=== PATIENT | male | born 1980 | race African-American/Black ===

== ENCOUNTER 2021-02-08 08:44 | Emergency (ER) | payer SELFPAY ==
--- NOTE | 2021-02-08 09:10 | ER ---
Nurse's Notes [facility] Name: Slick Jc Age: 40 yrs Sex: Male : 1980 Arrival Date: 02/08/2021 Time: 08:46 Bed 6 Private MD: Diagnosis: Zoster [herpes zoster]-Left chest wall Presentation: 02/08 08:50 Chief complaint: Patient states: RASH ON LEFT RIBS FOR TWO DAYS. Coronavirus screen: At bp this time, the client does not indicate any symptoms associated with coronavirus-19. Ebola Screen: No symptoms or risks identified at this time. Initial Sepsis Screen: Does the patient meet any 2 criteria? No. Patient's initial sepsis screen is negative. Does the patient have a suspected source of infection? No. Patient's initial sepsis screen is negative. Risk Assessment: Do you want to hurt yourself or someone else? Patient reports no desire to harm self or others. Onset of symptoms is unknown. 08:50 Method Of Arrival: Ambulatory bp 08:50 Acuity: AVINASH 5 bp Triage Assessment: 08:50 General: Appears in no apparent distress. uncomfortable, obese, Behavior is calm, bp cooperative, appropriate for age. Pain: Complains of pain in left lateral anterior chest. EENT: No deficits noted. Neuro: No deficits noted. Cardiovascular: No deficits noted. Respiratory: No deficits noted. GI: No signs and/or symptoms were reported involving the gastrointestinal system. : No signs and/or symptoms were reported regarding the genitourinary system. Derm: Rash noted that is vesicular. Musculoskeletal: No deficits noted. Historical: - Allergies: 08:57 No Known Allergies; bp - Home Meds: 08:57 None [Active]; bp - PMHx: 08:57 None; bp - Immunization history:: Adult Immunizations up to date. - Social history:: Smoking status: Patient denies any tobacco usage or history of. Screenin:50 Abuse screen: Denies threats or abuse. Denies injuries from another. Nutritional bp screening: No deficits noted. Tuberculosis screening: No symptoms or risk factors identified. Fall Risk None identified. Assessment: 08:50 General: SEE TRIAGE NOTE. bp 09:10 Reassessment: D/C ON HOLD FOR MEDICATION. bp 09:43 Reassessment: PT D/C HOME AMBULATORY, DX WITH SHINGLES. bp Vital Signs: 08:53 BP 149 / 93; Pulse 77; Resp 16; Temp 98.1(O); Pulse Ox 98% on R/A; Weight 140.61 kg; em1 Height 6 ft. 0 in. (182.88 cm); Pain 9/10; 09:43 BP 138 / 76; Pulse 73; Resp 16; Pulse Ox 97% ; bp 08:53 Body Mass Index 42.04 (140.61 kg, 182.88 cm) em1 ED Course: 08:46 Patient arrived in ED. am2 08:49 Rosalio Calzada, KIRT is Primary Nurse. bp 08:49 Juan Montgomery MD is Attending Physician. kdr 08:50 Arm band placed on. bp 08:50 Patient has correct armband on for positive identification. Bed in low position. Call bp light in reach. Side rails up X2. Adult w/ patient. 08:57 Triage completed. bp 09:10 Inserted saline lock: 22 gauge in right antecubital area, using aseptic technique. bp Blood collected. 09:43 No provider procedures requiring assistance completed. IV discontinued, intact, bp bleeding controlled, No redness/swelling at site. Pressure dressing applied. Administered Medications: 09:09 CANCELLED (Physician Discretion): morphine 1 mg IVP once; RASS on ADMIN: Combtv4, Very iw Agttd3, Agttd2, Rstlss1, AlertClm0, Drwsy-1, Lt Sdtn-2, Mod Sdtn-3, Dp Sdtn-4, UnArsble-5 09:10 Drug: Zofran (Ondansetron) 4 mg Route: IVP; Site: right antecubital; bp 09:42 Follow up: Response: No adverse reaction bp 09:10 Drug: SOLU-Medrol (methylPrednisoLONE) 125 mg Route: IVP; Site: right antecubital; bp 09:42 Follow up: Response: Marked relief of symptoms bp 09:10 Drug: morphine 4 mg Route: IVP; Site: right antecubital; bp 09:43 Follow up: Response: Pain is decreased bp Outcome: 09:10 Discharge ordered by . kdr 09:43 Discharged to home ambulatory, with family. bp 09:43 Condition: stable 09:43 Discharge instructions given to patient, Instructed on discharge instructions, follow up and referral plans. medication usage, Demonstrated understanding of instructions, follow-up care, medications, Prescriptions given X 4. 09:45 Patient left the ED. bp Signatures: Juan Montgomery MD MD kdr Martinez, Eric em1 [place] am2 Rosalio Calzada, RN RN Yolie Luque RN iw
--- NOTE | 2021-02-08 09:10 | EDPHYS ---
Physician Documentation [facility] Name: Slick Jc Age: 40 yrs Sex: Male : 1980 Arrival Date: 02/08/2021 Time: 08:46 Bed 6 Private MD: ED Physician Juan Montgomery HPI: 02/08 09:14 This 40 yrs old Black Male presents to ER via Ambulatory with complaints of Rash. kdr 09:14 The patient's rash thought to be caused by an unknown cause. The rash is located on the kdr left lateral anterior chest. The rash can be described as erythematous, raised, vesicular. Onset: The symptoms/episode began/occurred gradually, 2 day(s) ago. Associated signs and symptoms: Pertinent positives: burning sensation, Pain Pertinent negatives: difficulty breathing, fever, itching, nausea, swelling of lips, swelling of throat, swelling of tongue. Severity of symptoms: At their worst the symptoms were mild in the emergency department the symptoms are unchanged. The patient has not experienced similar symptoms in the past. The patient has not recently seen a physician. Historical: - Allergies: 08:57 No Known Allergies; bp - Home Meds: 08:57 None [Active]; bp - PMHx: 08:57 None; bp - Immunization history:: Adult Immunizations up to date. - Social history:: Smoking status: Patient denies any tobacco usage or history of. ROS: 09:14 Constitutional: Negative for fever, chills, and weight loss, Eyes: Negative for injury, kdr pain, redness, and discharge. 09:14 Skin: Positive for rash. Exam: 09:14 Skin: rash a mild rash is noted, rash can be described as linear, macular, papular, kdr zoster. 09:17 Constitutional: This is a well developed, well nourished patient who is awake, alert, kdr and in no acute distress. Vital Signs: 08:53 BP 149 / 93; Pulse 77; Resp 16; Temp 98.1(O); Pulse Ox 98% on R/A; Weight 140.61 kg; em1 Height 6 ft. 0 in. (182.88 cm); Pain 9/10; 09:43 BP 138 / 76; Pulse 73; Resp 16; Pulse Ox 97% ; bp 08:53 Body Mass Index 42.04 (140.61 kg, 182.88 cm) em1 MDM: 09:10 Patient medically screened. kdr 09:14 Data reviewed: vital signs, nurses notes. Counseling: I had a detailed discussion with kdr the patient and/or guardian regarding: the historical points, exam findings, and any diagnostic results supporting the discharge/admit diagnosis, the need for outpatient follow up. Administered Medications: 09:09 CANCELLED (Physician Discretion): morphine 1 mg IVP once; RASS on ADMIN: Combtv4, Very iw Agttd3, Agttd2, Rstlss1, AlertClm0, Drwsy-1, Lt Sdtn-2, Mod Sdtn-3, Dp Sdtn-4, UnArsble-5 09:10 Drug: Zofran (Ondansetron) 4 mg Route: IVP; Site: right antecubital; bp 09:42 Follow up: Response: No adverse reaction bp 09:10 Drug: SOLU-Medrol (methylPrednisoLONE) 125 mg Route: IVP; Site: right antecubital; bp 09:42 Follow up: Response: Marked relief of symptoms bp 09:10 Drug: morphine 4 mg Route: IVP; Site: right antecubital; bp 09:43 Follow up: Response: Pain is decreased bp Disposition: 02/08/21 09:10 Discharged to Home. Impression: Zoster [herpes zoster] - Left chest wall. - Condition is Stable. - Discharge Instructions: Shingles, [id number]. - Prescriptions for Ibuprofen 800 mg Oral Tablet - take 1 tablet by ORAL route every 8 hours As needed take with food; 30 tablet. Tylenol- Codeine #3 300-30 mg Oral Tablet - take 2 tablets by ORAL route every 4-6 hours As needed; 12 tablet. Acyclovir 800 mg Oral Tablet - take 1 tablet by ORAL route 5 times per day for 10 days; 50 tablet. Medrol (Slim) 4 mg Oral Tablets, Dose Pack - take 1 tablet by ORAL route as directed - follow package instructions; 1 packet. - Work release form, Medication Reconciliation Form, Thank You Letter, Prescription Opioid Use form. - Follow up: Private Physician; When: 2 - 3 days; Reason: If symptoms return, Further diagnostic work-up, Recheck today's complaints, Continuance of care, Re-evaluation by your physician. - Problem is new. - Symptoms have improved. Signatures: Juan Montgomery MD MD kdr Rosalio Calzada, KIRT RN bp Yolie Cardona RN iw Corrections: (The following items were deleted from the chart) 09:09 09:02 morphine 1 mg IVP once; RASS on ADMIN: Combtv4, Very Agttd3, Agttd2, Rstlss1, iw AlertClm0, Drwsy-1, Lt Sdtn-2, Mod Sdtn-3, Dp Sdtn-4, UnArsble-5 ordered. kdr 09:45 09:10 02/08/2021 09:10 Discharged to Home. Impression: Zoster [herpes zoster] - Left bp chest wall. Condition is Stable. Forms are Medication Reconciliation Form, Thank You Letter, Antibiotic Education, Prescription Opioid Use. Follow up: Private Physician; When: 2 - 3 days; Reason: If symptoms return, Further diagnostic work-up, Recheck today's complaints, Continuance of care, Re-evaluation by your physician. Problem is new. Symptoms have improved. kdr
[2021-02-08] MEDS ORDERED: ONDANSETRON 4 MG/2 ML VIAL ONE (09:26)
[2021-02-08] MEDS ORDERED: METHYLPREDNISOLONE 125 MG INJ ONE (09:26)
[2021-02-08] MEDS ORDERED: MORPHINE 4 MG/ML SYR ONE (09:26)
[2021-02-08 09:51] VITALS: TEMP 98.1
[2021-02-08 10:02] VITALS: BP 138/76; O2SAT 97
== END 2021-02-08 09:45 | disposition home or self-care (01) ==
LOC: ER 08:44
DX: B02.9 Zoster without complications (principal)
CPT/HCPCS: 96374; 96375; 99284; J2405; J2930

== ENCOUNTER 2021-02-19 19:23 | Inpatient (IN) | payer SELFPAY ==
[2021-02-19] MEDS ORDERED: MORPHINE 4 MG/ML SYR ONE (20:55)
[2021-02-19] MEDS ORDERED: NA CHLORIDE 0.9% 1,000 ML ONE ×3 (20:55→23:59)
[2021-02-19] MEDS ORDERED: ONDANSETRON 4 MG/2 ML VIAL ONE (20:55)
[2021-02-19] MEDS ORDERED: FAMOTIDINE 20 MG/2 ML VIAL IV ONE (20:55)
[2021-02-19 21:01] LABS: Urine Blood Negative (Negative); Urine Glucose Negative (Negative); Urine Protein 1+ (Negative); Urine Specific Gravity 1.025 (1.005-1.030)
[2021-02-19 21:07] LABS: Absolute Lymphocytes (CBC) 0.9 K/uL (0.7-4.9); Basophils % 0.4 % (0-1.3); Hematocrit 47.8 % (39.6-49.0); Lymphocytes % 9.1 % (15.3-44.8); MPV 7.2 fL (7.6-11.3); RBC Red Blood Cell Count 5.59 M/uL (4.33-5.43)
[2021-02-19 21:18] LABS: ALT/SGPT 49 U/L (12-78); AST/SGOT 24 U/L (15-37); Albumin 3.6 g/dL (3.4-5.0); Alkaline Phosphatase 54 U/L (45-117); BUN Blood Urea Nitrogen 17 mg/dL (7-18); Bicarbonate 28 mmol/L (21-32); Bilirubin Direct 0.1 mg/dL (0-0.2); Bilirubin Total 0.5 mg/dL (0.2-1.0); Glucose Level 113 mg/dL (74-106); Lipase 102 U/L (73-393); Potassium 4.6 mmol/L (3.5-5.1); Protein, Total 8.1 g/dL (6.4-8.2); Sodium Level 139 mmol/L (136-145)
[2021-02-19 21:26] LABS: Barbiturates NEGATIVE (NEGATIVE); Benzodiazepines NEGATIVE (NEGATIVE); Cocaine NEGATIVE (NEGATIVE); METHAMPHETAM NEGATIVE (NEGATIVE); Methadone NEGATIVE (NEGATIVE); Opiates NEGATIVE (NEGATIVE); Phencyclidine NEGATIVE (NEGATIVE); THC Cannibis POSITIVE (NEGATIVE)
[2021-02-19 22:21] LABS: Blood Morphology Comment NOT SEEN (NOT SEEN); Platelet Estimate ADEQ
--- NOTE | 2021-02-19 23:35 | EDPHYS ---
Physician Documentation [facility] Name: Slick Jc Age: 40 yrs Sex: Male : 1980 Arrival Date: 02/19/2021 Time: 19:26 Bed 6 Private MD: ED Physician Chip Santana HPI: 02/19 21:10 This 40 yrs old Black Male presents to ER via Ambulatory with complaints of Vomiting. mh7 21:10 The patient presents to the emergency department with nausea, that is moderate, mh7 vomiting, that is intermittent, described as clear fluid, abdominal pain, of the epigastric area, described as intermittent, vague,\E\ waxing and waning, and does not radiate. Onset: The symptoms/episode began/occurred this morning, today. Possible causes: Drank ETOH last night. The symptoms are aggravated by nothing. The symptoms are alleviated by nothing. Associated signs and symptoms: Pertinent negatives: anorexia, belching, constipation, diarrhea, dysuria, fever, flatulence, GI bleeding, hematuria. Severity of symptoms: At their worst the symptoms were moderate today, in the emergency department the symptoms are unchanged. Historical: - Allergies: 19:44 No Known Allergies; ad5 - Home Meds: 19:44 None [Active]; ad5 - Immunization history:: Adult Immunizations unknown. - Social history:: Smoking status: Patient denies any tobacco usage or history of. Patient uses alcohol. ROS: 21:10 Constitutional: Negative for fever, chills, and weight loss, Eyes: Negative for injury, mh7 pain, redness, and discharge, ENT: Negative for injury, pain, and discharge, Neck: Negative for injury, pain, and swelling, Cardiovascular: Negative for chest pain, palpitations, and edema, Respiratory: Negative for shortness of breath, cough, wheezing, and pleuritic chest pain, Back: Negative for injury and pain, : Negative for injury, bleeding, discharge, and swelling, MS/Extremity: Negative for injury and deformity, Skin: Negative for injury, rash, and discoloration, Neuro: Negative for headache, weakness, numbness, tingling, and seizure, Psych: Negative for depression, anxiety, suicide ideation, homicidal ideation, and hallucinations, Allergy/Immunology: Negative for hives, rash, and allergies, Endocrine: Negative for neck swelling, polydipsia, polyuria, polyphagia, and marked weight changes, Hematologic/Lymphatic: Negative for swollen nodes, abnormal bleeding, and unusual bruising. Exam: 21:10 Head/Face: Normocephalic, atraumatic. Eyes: Pupils equal round and reactive to light, mh7 extra-ocular motions intact. Lids and lashes normal. Conjunctiva and sclera are non-icteric and not injected. Cornea within normal limits. Periorbital areas with no swelling, redness, or edema. Neck: Trachea midline, no thyromegaly or masses palpated, and no cervical lymphadenopathy. Supple, full range of motion without nuchal rigidity, or vertebral point tenderness. No Meningismus. Chest/axilla: Normal chest wall appearance and motion. Nontender with no deformity. No lesions are appreciated. Cardiovascular: Regular rate and rhythm with a normal S1 and S2. No gallops, murmurs, or rubs. Normal PMI, no JVD. No pulse deficits. Respiratory: Lungs have equal breath sounds bilaterally, clear to auscultation and percussion. No rales, rhonchi or wheezes noted. No increased work of breathing, no retractions or nasal flaring. 21:10 Back: No spinal tenderness. No costovertebral tenderness. Full range of motion. Skin: Warm, dry with normal turgor. Normal color with no rashes, no lesions, and no evidence of cellulitis. MS/ Extremity: Pulses equal, no cyanosis. Neurovascular intact. Full, normal range of motion. Neuro: Awake and alert, GCS 15, oriented to person, place, time, and situation. Cranial nerves II-XII grossly intact. Motor strength 5/5 in all extremities. Sensory grossly intact. Cerebellar exam normal. Normal gait. Psych: Awake, alert, with orientation to person, place and time. Behavior, mood, and affect are within normal limits. 21:10 Constitutional: The patient appears in no acute distress, alert, awake, uncomfortable. 21:10 Abdomen/GI: Inspection: obese Bowel sounds: normal, in all quadrants, Palpation: moderate abdominal tenderness, in the epigastric area, right upper quadrant and left upper quadrant, mass, is not appreciated, rebound tenderness, is not appreciated, voluntary guarding, is not appreciated, involuntary guarding, is not appreciated, no appreciated organomegaly, Rectal exam: the exam is deferred, because of patient request, Indicators: McBurney's point is not tender, Dent's sign is negative, Rovsing's sign is negative, Obturator sign is negative, Psoas sign is negative, Liver: no appreciated palpable abnormalities, Hernia: not appreciated. Vital Signs: 19:42 BP 160 / 86; Pulse 73; Resp 16 S; Temp 97.6; Pulse Ox 98% on R/A; Weight 141.07 kg; ad5 Height 6 ft. (182.88 cm); 21:42 BP 152 / 79; Pulse 74; Resp 16; Pulse Ox 99% on R/A; [facility] 23:26 BP 154 / 85; Pulse 70; Resp 16; Pulse Ox 99% on R/A; [facility] 02/20 00:37 BP 148 / 78; Pulse 71; Resp 16; Pulse Ox 98% on R/A; [facility] 02/19 19:42 Body Mass Index 42.18 (141.07 kg, 182.88 cm) ad5 MDM: 02/19 23:31 Differential diagnosis: Nonspecific abd pain, gastritis, appendicitis, diverticulitis, 7 viral gastroenteritis, gastroenteritis. Data reviewed: vital signs, nurses notes, lab test result(s), CBC, electrolytes, urinalysis, radiologic studies, CT scan. Data interpreted: Pulse oximetry: on room air is 99 %. Interpretation: normal. Counseling: I had a detailed discussion with the patient and/or guardian regarding: the historical points, exam findings, and any diagnostic results supporting the discharge/admit diagnosis, the presence of at least one elevated blood pressure reading (>120/80) during this emergency department visit, lab results, radiology results, the need for further work-up and treatment in the hospital. Response to treatment: the patient's symptoms have markedly improved after treatment. Physician consultation: Gaston Jara MD was contacted at 23:20, regarding patient's condition, and will see patient in inpatient room, would like admission per Dr. Leander Briceno MD. 23:34 Patient medically screened. [facility] 02/19 20:26 Order name: Basic Metabolic Panel; Complete Time: 21:29 [facility] 02/19 20:26 Order name: CBC with Diff; Complete Time: 22:24 [facility] 02/19 20:26 Order name: Hepatic Function; Complete Time: 21:29 [facility] 02/19 20:26 Order name: Lipase; Complete Time: 21:29 [facility] 02/19 20:26 Order name: UDS; Complete Time: 21:29 [facility] 02/19 21:01 Order name: Urine Dipstick-Ancillary; Complete Time: 21:29 [facility] 02/19 21:08 Order name: Manual Differential; Complete Time: 22:24 [facility] 02/19 21:29 Order name: CT Abd/Pelvis - IV Contrast Only [facility] 02/20 01:03 Order name: SARS-COV-2 RT PCR [facility] 02/19 20:26 Order name: IV Saline Lock; Complete Time: 20:45 [facility] 02/19 20:26 Order name: Labs collected and sent; Complete Time: 20:46 [facility] 02/19 20:26 Order name: EKG - Nurse/Tech; Complete Time: 20:58 [facility] 02/19 20:26 Order name: Urine Dipstick-Ancillary (obtain specimen); Complete Time: 20:58 [facility] Administered Medications: 20:45 Drug: NS 0.9% 1000 ml Route: IV; Rate: 1000 ml; Site: right antecubital; [facility] 02/20 00:06 Follow up: IV Status: Completed infusion [facility] 02/19 20:45 Drug: morphine 4 mg Route: IVP; Site: right antecubital; [facility] 21:31 Follow up: Response: No adverse reaction [facility] 20:45 Drug: Zofran (Ondansetron) 4 mg Route: IVP; Site: right antecubital; [facility] 21:31 Follow up: Response: No adverse reaction [facility] 20:45 Drug: Pepcid (famotidine) 20 mg Route: IVP; Site: right antecubital; [facility] 21:31 Follow up: Response: No adverse reaction [facility] 21:40 Drug: NS 0.9% 1000 ml Route: IV; Rate: 1000 ml; Site: left antecubital; [facility] 02/20 00:06 Follow up: IV Status: Completed infusion [facility] 02/19 23:40 CANCELLED (Duplicate Order): NS 0.9% 1000 ml IV at 100 ml/hr once [facility] 23:40 CANCELLED (Duplicate Order): ProTONIX (pantoprazole) 40 mg IVP once [facility] 02/20 00:05 Drug: Zosyn (piperacillin-tazobactam) 3.375 grams Route: IVPB; Infused Over: 60 mins; 8 Site: right antecubital; 00:38 Follow up: Response: No adverse reaction; IV Status: Completed infusion [facility] 00:06 Drug: ProTONIX (pantoprazole) 40 mg Route: IVP; Site: right antecubital; [facility] 00:38 Follow up: Response: No adverse reaction [facility] 00:06 Drug: NS 0.9% 1000 ml Route: IV; Rate: 100 ml/hr; Site: right antecubital; [facility] 02:11 Follow up: IV Status: Infusion continued upon admission [facility] Disposition: 02/19/21 23:34 Hospitalization ordered by Leander Briceno for Observation. Diagnosis are Lower abdominal pain, unspecified - Possible Appendicits, Nausea and vomiting. - Bed requested for Telemetry/MedSurg (observation). - Status is Observation. [facility] - Condition is Stable. - Problem is new. - Symptoms have improved. Signatures: Dispatcher [employer] [facility] Adeline Goldberg RN RN dw Attema, Lee, CROSS CUT SAWYER-C CR[employer]WYER-Cla1 Chip Santana MD MD [facility] Yan Estevez RN RN [facility] Domingo Gaston Corrections: (The following items were deleted from the chart) 02/19 23:40 23:40 NS 0.9% 1000 ml IV at 100 ml/hr once ordered. [place] [id number] 23:40 23:40 ProTONIX (pantoprazole) 40 mg IVP once ordered. [place] [id number] 02/20 00:11 02/19 23:41 CORONAVIRUS+MR.LAB.BRZ ordered. [facility] 02/20 01:09 02/19 23:34 Hospitalization Ordered by Leander Briceno MD for Observation. Preliminary diagnosis is Lower abdominal pain, unspecified - Possible Appendicits; Nausea and vomiting. Bed requested for Telemetry/MedSurg (observation). Status is Observation. Condition is Stable. Problem is new. Symptoms have improved. [facility] 02/20 02:11 01:09 02/19/2021 23:34 Hospitalization Ordered by Leander Briceno MD for Observation. [facility] Preliminary diagnosis is Lower abdominal pain, unspecified - Possible Appendicits; Nausea and vomiting. Bed requested for Telemetry/MedSurg (observation). Status is Observation. Condition is Stable. Problem is new. Symptoms have improved. dw
--- NOTE | 2021-02-19 23:35 | ER ---
Nurse's Notes [facility] Name: Slick Jc Age: 40 yrs Sex: Male : 1980 Arrival Date: 02/19/2021 Time: 19:26 Bed 6 Private MD: Diagnosis: Lower abdominal pain, unspecified-Possible Appendicits; Nausea and vomiting Presentation: 02/19 19:42 Chief complaint: Patient states: C/O n/v "all day". Pt reports ETOH last pm, reports ad5 only "2 shots". Denies abd pain, diarrhea, urinary s/s or other c/o. Coronavirus screen: At this time, the client does not indicate any symptoms associated with coronavirus-19. Ebola Screen: No symptoms or risks identified at this time. Initial Sepsis Screen: Does the patient meet any 2 criteria? No. Patient's initial sepsis screen is negative. Does the patient have a suspected source of infection? No. Patient's initial sepsis screen is negative. Risk Assessment: Do you want to hurt yourself or someone else? Patient reports no desire to harm self or others. Onset of symptoms was February 19, 2021. 19:42 Method Of Arrival: Ambulatory ad5 19:42 Acuity: AVINASH 3 ad5 Triage Assessment: 19:44 General: Appears in no apparent distress. Behavior is calm, cooperative, appropriate ad5 for age. Historical: - Allergies: 19:44 No Known Allergies; ad5 - Home Meds: 19:44 None [Active]; ad5 - Immunization history:: Adult Immunizations unknown. - Social history:: Smoking status: Patient denies any tobacco usage or history of. Patient uses alcohol. Screenin:47 Abuse screen: Denies threats or abuse. Denies injuries from another. Nutritional jm8 screening: No deficits noted. Tuberculosis screening: No symptoms or risk factors identified. Fall Risk None identified. Assessment: 20:46 General: Appears in no apparent distress. comfortable, Behavior is calm, cooperative, jm8 appropriate for age. Pain: Complains of pain in abdomen. Neuro: No deficits noted. Neuro: Level of Consciousness is awake, alert, obeys commands, Oriented to person, place, time. Cardiovascular: No deficits noted. Respiratory: No deficits noted. Airway is patent Trachea midline Respiratory effort is even, unlabored, Respiratory pattern is regular, symmetrical. GI: Abdomen is round Bowel sounds present X 4 quads. Reports lower abdominal pain, upper abdominal pain, intolerance of fluids, intolerance of food, nausea, vomiting. : No deficits noted. No signs and/or symptoms were reported regarding the genitourinary system. EENT: No deficits noted. No signs and/or symptoms were reported regarding the EENT system. Derm: No deficits noted. No signs and/or symptoms reported regarding the dermatologic system. Musculoskeletal: No deficits noted. No signs and/or symptoms reported regarding the musculoskeletal system. Vital Signs: 19:42 BP 160 / 86; Pulse 73; Resp 16 S; Temp 97.6; Pulse Ox 98% on R/A; Weight 141.07 kg; ad5 Height 6 ft. (182.88 cm); 21:42 BP 152 / 79; Pulse 74; Resp 16; Pulse Ox 99% on R/A; jm8 23:26 BP 154 / 85; Pulse 70; Resp 16; Pulse Ox 99% on R/A; [facility] 02/20 00:37 BP 148 / 78; Pulse 71; Resp 16; Pulse Ox 98% on R/A; 8 02/19 19:42 Body Mass Index 42.18 (141.07 kg, 182.88 cm) ad5 ED Course: 02/19 19:26 Patient arrived in ED. bp1 19:43 Triage completed. ad5 20:02 Chip Santana MD is Attending Physician. 7 20:47 Patient has correct armband on for positive identification. Bed in low position. Call [facility] light in reach. Side rails up X2. 20:47 Arm band placed on right wrist. 8 21:00 Inserted saline lock: 20 gauge in right antecubital area, using aseptic technique. jm8 22:42 CT Abd/Pelvis - IV Contrast Only In Process Unspecified. EDMS 23:33 Leander Briceno MD is Hospitalizing Provider. [facility] 02/20 01:37 Report given to Kendy MORALEZ. [facility] 02:10 No provider procedures requiring assistance completed. Patient admitted, IV remains in [facility] place. Administered Medications: 02/19 20:45 Drug: NS 0.9% 1000 ml Route: IV; Rate: 1000 ml; Site: right antecubital; [facility] 02/20 00:06 Follow up: IV Status: Completed infusion [facility] 02/19 20:45 Drug: morphine 4 mg Route: IVP; Site: right antecubital; 8 21:31 Follow up: Response: No adverse reaction 8 20:45 Drug: Zofran (Ondansetron) 4 mg Route: IVP; Site: right antecubital; 8 21:31 Follow up: Response: No adverse reaction [facility] 20:45 Drug: Pepcid (famotidine) 20 mg Route: IVP; Site: right antecubital; 8 21:31 Follow up: Response: No adverse reaction [facility] 21:40 Drug: NS 0.9% 1000 ml Route: IV; Rate: 1000 ml; Site: left antecubital; [facility] 02/20 00:06 Follow up: IV Status: Completed infusion [facility] 02/19 23:40 CANCELLED (Duplicate Order): NS 0.9% 1000 ml IV at 100 ml/hr once [facility] 23:40 CANCELLED (Duplicate Order): ProTONIX (pantoprazole) [address] [facility] 02/20 00:05 Drug: Zosyn (piperacillin-tazobactam) 3.375 grams Route: IVPB; Infused Over: 60 mins; [facility] Site: right antecubital; 00:38 Follow up: Response: No adverse reaction; IV Status: Completed infusion [facility] 00:06 Drug: ProTONIX (pantoprazole) 40 mg Route: IVP; Site: right antecubital; [facility] 00:38 Follow up: Response: No adverse reaction [facility] 00:06 Drug: NS 0.9% 1000 ml Route: IV; Rate: 100 ml/hr; Site: right antecubital; [facility] 02:11 Follow up: IV Status: Infusion continued upon admission [facility] Outcome: 02/19 23:34 Decision to Hospitalize by Provider. [facility] 02/20 02:11 Admitted to Med/surg [facility] Condition: good Instructed on the need for admit. 02:11 Patient left the ED. 8 Signatures: Dispatcher [employer] EDMS Karen Lopez Maurice, MD MD [facility] Yan Estevez RN RN [facility] Domingo Gaston
[2021-02-19] MEDS ORDERED: PANTOPRAZOLE 40 MG INJ ONE (23:59)
[2021-02-20] MEDS ORDERED: NA CHLORIDE 0.9% 100 ML ONE
[2021-02-20] MEDS ORDERED: PIPERACIL/TAZO 3.375 GM VIAL IV ONE
--- NOTE | 2021-02-20 00:15 | P.HP ---
Certification for Inpatient Patient admitted to: Observation With expected LOS: <2 Midnights Patient will require the following post-hospital care: None Practitioner: I am a practitioner with admitting privileges, knowledge of patient current condition, hospital course, and medical plan of care. Services: Services provided to patient in accordance with Admission requirements found in Title 42 Section 412.3 of the Code of Federal Regulations <Jose Jay - Last Filed: 02/20/21 00:13> Patient History Date of Service: 02/20/21 Primary Care Provider: none Reason for admission: Abdominal tenderness History of Present Illness: 40-year-old Afro-[place] with morbid obesity, hypertension presents emergency department for abdominal pain/vomiting. Patient reports last night he had a few drinks and throughout the day he has been having vomiting all day. Reports epigastric and right lower quadrant abdominal pain. Patient evaluated in the emergency department, labs significant for white blood cell count 9.4 CT demonstrates slight prominence of the appendix with minimal periappendiceal haziness for which the possibility of acute early appendicitis could be a consideration. Case was discussed with General Surgery who recommends admit under observation with repeat CT scan with p.o. contrast in the morning. - Past Medical/Surgical History -: Hypertension -: none Psychosocial/ Personal History: Works and lawn service - Family History Family History: Reviewed- Non-Contributory - Social History Smoking Status: Never smoker Alcohol use: No CD- Drugs: Yes Caffeine use: Yes Place of Residence: Home <MistyJose - Last Filed: 02/20/21 00:13> Date of Service: 02/20/21 <Leander Briceno - Last Filed: 02/21/21 06:27> Review of Systems 10-point ROS is otherwise unremarkable Gastrointestinal: Nausea, Vomiting, Abdominal Pain <Jose Jay - Last Filed: 02/20/21 00:13> Physical Examination - Physical Exam General: Alert, In no apparent distress, Obese HEENT: Atraumatic, PERRLA, Mucous membr. moist/pink, EOMI, Sclerae nonicteric Neck: Supple, 2+ carotid pulse no bruit, No LAD, Without JVD or thyroid abnormality Respiratory: Clear to auscultation bilaterally, Normal air movement Cardiovascular: Regular rate/rhythm, Normal S1 S2 Gastrointestinal: Normal bowel sounds, No rebound, No guarding, Tenderness (Mild epigastric, moderate right lower quadrant tenderness) Musculoskeletal: No tenderness Integumentary: No rashes Neurological: Normal gait, Normal speech, Normal strength at 5/5 x4 extr, Normal tone, Normal affect Lymphatics: No axilla or inguinal lymphadenopathy - Studies Laboratory Data (last 24 hrs) 02/19/21 20:42: WBC 9.40, Hgb 15.8, Hct 47.8, Plt Count 219 02/19/21 20:42: Sodium 139, Potassium 4.6, BUN 17, Creatinine 1.08, Glucose 113 H, Total Bilirubin 0.5, AST 24, ALT 49, Alkaline Phosphatase 54, Lipase 102 <Jose Jay - Last Filed: 02/20/21 00:13> - Studies Laboratory Data (last 24 hrs) 02/20/21 05:16: Sodium 141, Potassium 4.4, BUN 11, Creatinine 1.07, Glucose 104, Total Bilirubin 0.5, AST 23, ALT 42, Alkaline Phosphatase 47 <Leander Briceno - Last Filed: 02/21/21 06:27> Assessment and Plan - Plan Assessment Abdominal tenderness suspected early appendicitis Hypertension Morbid obesity Plan Abdominal tenderness suspected early appendicitis: General surgery consulted, NPO, Zosyn, p.r.n. pain medications and anti emetics, IV fluids, GI prophylaxis. Repeat CT with p.o. contrast in the morning. DVT prophylaxis with SCDs. Hypertension: Patient not on any medication currently, previously on lisinopril. Will watch blood pressure throughout hospitalization, patient may need medication at discharge. Morbid obesity: Discussed lifestyle changes. Discharge Plan: Home Plan to discharge in: 24 Hours - Advance Directives Does patient have a Living Will: No Does patient have a Durable POA for Healthcare: No - Code Status/Comfort Care Code Status Assessed: Yes (Full code) Critical Care: No Time Spent Managing Pts Care (In Minutes): 55 <Jose Jay - Last Filed: 02/20/21 00:13> Date of Service: 02/20/21 Agree with plan of care as mentioned above. Patient to proceed with lap choly later today. <Leander Briceno - Last Filed: 02/21/21 06:27>
[2021-02-20] MEDS ORDERED: ONDANSETRON 4 MG/2 ML VIAL IV PRN (01:42)
[2021-02-20] MEDS ORDERED: PIPER/TAZO/NS 3.375gm 3.375 GM/100 ML BAG IVPB SCH (01:42)
[2021-02-20] MEDS ORDERED: SODIUM CHLORIDE 0.9% 10ML INJ IV PRN (01:42)
[2021-02-20] MEDS: MORPHINE 2 MG/ML SYR IV PRN ×2 (02:11→09:29)
[2021-02-20 02:19] VITALS: BMI 42.1
[2021-02-20] MEDS: NA CHLORIDE 0.9% 1,000 ML IV SCH ×3 (03:36→20:33)
[2021-02-20 06:13] LABS: Absolute Lymphocytes (CBC) 1.4 K/uL (0.7-4.9); Basophils % 0.2 % (0-1.3); Hematocrit 48.5 % (39.6-49.0); Lymphocytes % 18.6 % (15.3-44.8); MPV 7.2 fL (7.6-11.3); RBC Red Blood Cell Count 5.55 M/uL (4.33-5.43)
[2021-02-20 06:34] LABS: ALT/SGPT 42 U/L (12-78); AST/SGOT 23 U/L (15-37); Albumin 3.1 g/dL (3.4-5.0); Alkaline Phosphatase 47 U/L (45-117); BUN Blood Urea Nitrogen 11 mg/dL (7-18); Bicarbonate 29 mmol/L (21-32); Bilirubin Total 0.5 mg/dL (0.2-1.0); Glucose Level 104 mg/dL (74-106); Potassium 4.4 mmol/L (3.5-5.1); Protein, Total 7.3 g/dL (6.4-8.2); Sodium Level 141 mmol/L (136-145)
[2021-02-20 08:43] LABS: Urine Appearance CLEAR (Clear); Urine Bilirubin NEGATIVE (Negative); Urine Blood NEGATIVE (Negative); Urine Color YELLOW (Yellow); Urine Glucose NEGATIVE (Negative); Urine Protein NEGATIVE (Negative); Urine Urobilinogen 0.2 mg/dL (0.2-1.0)
[2021-02-20 08:51] LABS: Urine Bacteria NONE SEEN /HPF (NONE SEEN); Urine RBC NONE SEEN /HPF (NONE SEEN)
--- NOTE | 2021-02-20 09:22 | RAD REPORT ---
EXAM DESCRIPTION: CT - Abdomen Pelvis Wo Contrast - 02/20/2021 8:56 am CLINICAL HISTORY: Abdominal pain. R/O Appy COMPARISON: Abdomen Pelvis W Contrast dated 02/19/2021 TECHNIQUE: CT imaging of the abdomen and pelvis was performed without contrast. Solid organ and vasc ular assessment is limited due to lack of IV contrast. All CT scans are performed using dose optimization technique as appropriate and may include automated exposure control or mA/KV adjustment according to patient size. FINDINGS: The lower lung israel are clear. The liver, spleen, pancreas, adrenal glands and kidneys are within normal limits for a limited non-co ntrast examination. No bowel obstruction, free air, free fluid or abscess. Scattered colonic diverticula. The appendix is dilated to 15 millimeters with mild surrounding inflammation compatible with early acute appendiciti s. No fractures. IMPRESSION: Early acute appendicitis. A limited non-contrast examination was performed as detailed.
[2021-02-20] MEDS: PANTOPRAZOLE 40 MG INJ IVP SCH (09:25)
[2021-02-20] MEDS: PIPER/TAZO/NS 3.375gm 3.375 GM/100 ML BAG IVPB SCH ×2 (09:44→17:43)
[2021-02-20] MEDS ORDERED: FENTANYL CITR 100 MCG/2 ML ONE (13:02)
[2021-02-20] MEDS ORDERED: propofoL 200 MG/20 ML VIAL IV ONE ×4 (13:02→14:29)
[2021-02-20] MEDS ORDERED: LIDOCAINE 1% MPF 5 ML VIAL ONE (13:02)
[2021-02-20] MEDS ORDERED: ROCURONIUM 50 MG/5 ML VIAL IV ONE (13:02)
[2021-02-20] MEDS ORDERED: MIDAZOLAM HCL 2 MG/2 ML INJ ONE (13:02)
[2021-02-20] MEDS ORDERED: Ringers Lactate 1,000 ML IV ONE ×2 (13:11→15:06)
--- NOTE | 2021-02-20 13:32 | RAD REPORT ---
EXAM DESCRIPTION: ADDENDUM #1 THIS REPORT CONTAINS FINDINGS THAT MAY BE CRITICAL TO PATIENT CARE: Called, telephoned, verbal rep ort was given oral to Dr. Santana at 11:16 PM CDT on 02/19/2021. Electronically signed by: Renzo Panda MD 02/19/2021 11:38 PM CDT End of Addendum EXAM DESCRIPTION: Abdomen Pelvis W Contrast 02/19/2021 11:04 PM CDT CLINICAL HISTORY: 40 years, Male, Abd pain;Nausea / vomiting COMPARISON: None TECHNIQUE: Contrast-enhanced images of the abdomen and pelvis were performed utilizing 5 mm slice th ickness at 5 mm interval reconstruction from the lung bases to the ischial tuberosities after the adm inistration of IV contrast. In addition multiplanar reformats in the coronal and sagittal plane were obtained and reviewed. This exam was performed according to our departmental dose-optimization protocol, which includes auto mated exposure control, adjustment of the mA and/or kV according to patient size and/or use of iterat luis alberto reconstruction technique. FINDINGS: The lung bases demonstrate minimal dependent atelectatic changes. The liver, gallbladder, pancreas, spleen and adrenal glands demonstrate to be unremarkable, no focal lesions are noted. The kidneys demonstrate normal uptake of contrast media with no evidence for hydronephrosis. Grossly the unopacified stomach, small bowel and large bowel demonstrate to be within normal limits. There is no evidence for bowel dilatation/or free air. There is slight prominence of the appendix m easuring 12.[address] series #501 image 70/109 and coronal series #502 image 51/134-64/134, there is minimal periappendiceal haziness for which the possibility of early acute appendicitis could be of c onsideration. There is no evidence for abscess formation and/or perforation. The urinary bladder demonstrate to be unremarkable. The prostate gland is normal. The aorta demon strate to be normal. There is no retroperitoneal lymphadenopathy. There is no evidence for ascites and/or significant abnormal fluid collections. The rest of the soft tissue and bony structures are wi thin normal limits. IMPRESSION: Slight prominence of the appendix there is minimal periappendiceal haziness for which th e possibility of early acute appendicitis could be of consideration. There is no evidence for abscess formation and/or perforation. Otherwise unremarkable CT scan of the abdomen and pelvis with contrast. Electronically signed by: Renzo Panda MD 02/19/2021 11:12 PM CDT Due to temporary technical issues with the PACS/Fluency reporting system, reports are being signed by the in house radiologist without review as a courtesy to ensure prompt reporting. The interpreting r adiologist is fully responsible for the content of the report.
--- NOTE | 2021-02-20 14:28 | CON ---
Date of Consultation: 02/20/2021 Diagnosis: Abdominal pain. History Of Present Illness: This is a case of a 40-year-old patient, comes to us late last night wit h history of abdominal pain. mainly lower abdomen. He thought it was just a food poisoni ng and also he was drinking some yesterday as part of the weekend, but since did not get better, he c ome late last night. Etiology of that was initially questionable, so the patient was admitted for ob servation. A CAT scan was repeated this morning showing acute appendicitis. The patient denies any dysuria, hematuria, hematochezia, melena. Denies any recent traveling out of the country. Denies an y family member sick at home. Denies any trauma. Past Medical History: Hypertension, although he is just controlled with diet. Past Surgical History: None. Social History: He does smoke. He does not drink alcohol. Family History: Noncontributory. Review of Systems: See H and P. Ten points are otherwise unremarkable. Physical Examination: General: The patient is awake and alert. HEENT: Pupils are equal and reactive. Anicteric. Neck: Supple. Chest: Clear. Abdomen: Right lower quadrant and periumbilical tenderness with Rovsing sign positive. Genitalia: Deferred. Rectal: Deferred. Extremities: Good capillary refill. Laboratory Data: Blood work shows WBC count of 7.7, hemoglobin of 15.6. Potassium 4.4. CAT scan of abdomen and pelvis, I discussed the case today with yesterday we have some questions about it. Today, the CAT scan is still showing some areas that may be consistent with acute appendic itis. I was called for early acute appendicitis. Assessment: A 40-year-old patient with right lower quadrant tenderness and appendicitis. The benefi ts, alternatives, and risks of laparoscopic possible open appendectomy fully explained which include, but not limited to infection, bleeding, damage to adjacent structures anesthesia complication, negat luis alberto appendix, OR, even . He understands this may not relieve any symptoms. He might need more than one surgical intervention. The patient was emergently booked in OR. KAT/NICOLE Voice ID: [id number] Report ID: [id number]
[2021-02-20] MEDS ORDERED: dexAMETHasone 10 MG/ML VIAL ONE (14:49)
--- NOTE | 2021-02-20 14:59 | P.BOP ---
Preoperative diagnosis: Acute appendicitis, morbid obesity, HTN Postoperative diagnosis: same Primary procedure: Laparoscopic appendectomy Medical Radiation Dosimetrist: Tracie Polk (María Elena) Estimated blood loss: <10cc Specimen: carlos Findings: as above Anesthesia: General Complications: None Transferred to: Recovery Room Condition: Good
[2021-02-20] MEDS ORDERED: ONDANSETRON 4 MG/2 ML VIAL ONE (15:11)
[2021-02-20] MEDS ORDERED: KETOROLAC 30 MG/ML INJ ONE (15:11)
[2021-02-20] MEDS ORDERED: GLYCOPYRROLATE 0.2 MG/ML SYR ONE ×2 (15:12→15:19)
[2021-02-20] MEDS ORDERED: NEOSTIGMINE 1 MG/ML -5 ML ONE (15:12)
[2021-02-20] MEDS ORDERED: SUCCINYLCHOLINE 20 MG/ML (10 ML) IV ONE (15:39)
--- NOTE | 2021-02-20 15:49 | EKG ---
Test Date: 2021-02-19 Test Time: 20:56:47 Lane Marker Installer: EB MEASUREMENT RESULTS: Intervals: Rate: 71 IN: 200 QRSD: 120 QT: 368 QTc: 399 [place]: P: 33 IN: 200 QRS: 25 T: 34 INTERPRETIVE STATEMENTS: Normal sinus rhythm Nonspecific intraventricular conduction delay Borderline ECG No previous ECG available for comparison Electronically Signed On 02-20-21 15:47:04 CDT by Manny King
[2021-02-20] MEDS: DOCUSATE NA 100 MG CAP PO SCH (20:33)
[2021-02-21] MEDS: PIPER/TAZO/NS 3.375gm 3.375 GM/100 ML BAG IVPB SCH ×2 (00:10→09:13)
[2021-02-21] MEDS: MORPHINE 2 MG/ML SYR IV PRN (01:03)
[2021-02-21] MEDS: HYDROCODONE/APAP 5/325 MG TAB PO PRN ×2 (05:40→09:25)
[2021-02-21 06:15] LABS: Absolute Lymphocytes (CBC) 1.3 K/uL (0.7-4.9); Basophils % 0.2 % (0-1.3); Hematocrit 44.4 % (39.6-49.0); Lymphocytes % 14.6 % (15.3-44.8); MPV 7.1 fL (7.6-11.3); RBC Red Blood Cell Count 5.14 M/uL (4.33-5.43)
[2021-02-21 06:28] LABS: Albumin 2.8 g/dL (3.4-5.0); Bilirubin Total 0.6 mg/dL (0.2-1.0); Potassium 3.9 mmol/L (3.5-5.1); Protein, Total 6.6 g/dL (6.4-8.2)
[2021-02-21] MEDS: NA CHLORIDE 0.9% 1,000 ML IV SCH ×2 (06:37→07:42)
[2021-02-21] MEDS ORDERED: POTASSIUM CL SA 10 MEQ TAB PO ONE (09:00)
[2021-02-21] MEDS: PANTOPRAZOLE 40 MG INJ IVP SCH (09:12)
[2021-02-21] MEDS: DOCUSATE NA 100 MG CAP PO SCH (09:13)
[2021-02-21 10:55] VITALS: O2SAT 97
[2021-02-21 12:12] VITALS: BP 138/81; TEMP 97.6
--- NOTE | 2021-02-27 02:52 | P.DS ---
Discharge Date: 02/21/21 Primary Care Provider: none Disposition: ROUTINE DISCHARGE Discharge Condition: GOOD Reason for Admission: Abdominal tenderness Consultations: General surgery Brief History of Present Illness: 40-year-old Afro-[place]an with morbid obesity, hypertension presents emergency department for abdominal pain/vomiting. Patient reports last night he had a few drinks and throughout the day he has been having vomiting all day. Reports epigastric and right lower quadrant abdominal pain. Patient evaluated in the emergency department, labs significant for white blood cell count 9.4 CT dem onstrates slight prominence of the appendix with minimal periappendiceal haziness for which the possibility of acute early appendicitis could be a consideration. Case was discussed with General Surgery who recommends admit under observation with repeat CT scan with p.o. contrast in the morning. Hospital Course: Patient has done well postoperatively. At this time, he is stable for discharge with outpatient follow with General surgery. Continue with pain medication and advanced diet as tolerated. Vital Signs/Physical Exam: Temp Pulse Resp BP Pulse Ox 97.6 F 58 18 138/81 97 02/21/21 12:00 02/21/21 12:00 02/21/21 12:00 02/21/21 12:00 02/21/21 12:00 General: Alert, In no apparent distress, Oriented x3 Laboratory Data at Discharge: WBC 9.00 K/uL (4.3-10.9) D 02/21/21 05:33 Hgb 14.8 g/dL (13.6-17.9) 02/21/21 05:33 Hct 44.4 % (39.6-49.0) 02/21/21 05:33 Plt Count 190 K/uL (152-406) 02/21/21 05:33 Sodium 142 mmol/L (136-145) 02/21/21 05:33 Potassium 3.9 mmol/L (3.5-5.1) 02/21/21 05:33 BUN 12 mg/dL (7-18) 02/21/21 05:33 Creatinine 1.20 mg/dL (0.55-1.3) 02/21/21 05:33 Glucose 106 mg/dL (74-106) 02/21/21 05:33 Total Bilirubin 0.6 mg/dL (0.2-1.0) 02/21/21 05:33 AST 18 U/L (15-37) 02/21/21 05:33 ALT 36 U/L (12-78) 02/21/21 05:33 Alkaline Phosphatase 45 U/L (45-117) 02/21/21 05:33 Lipase 102 U/L (73-393) 02/19/21 20:42 Home Medications: Amox/Clavulanate [Augmentin 875-125 Tab] 875 mg PO BID #10 tab 02/21/21 Hydrocodone 5/APAP 325 [Farley 5/325*] 1 tab PO Q6HR PRN #20 tab 02/21/21 New Medications: Amox/Clavulanate [Augmentin 875-125 Tab] 875 mg PO BID #10 tab Hydrocodone 5/APAP 325 [Farley 5/325*] 1 tab PO Q6HR PRN #20 tab PRN Reason: Pain Scale 5-7 (Moderate) Physician Discharge Instructions: PROBLEM: Abdominal Pain, Appendicitis GOAL: Clear understanding of disease process INSTRUCTIONS: OK TO DC IV AND DC HOME FOLLOW-UP WITH PRIMARY CARE PROVIDER IN 1-2 WEEKS FOLLOW-UP WITH General surgery IN 1-2 WEEKS RETURN TO THE ER IF symptoms worsen CALL or TEXT DR. TOPETE AT [phone] IF ANY QUESTIONS REGARDING HOSPITAL STAY. PLEASE CALL THE FLOOR AT [phone] IF ANY MEDICATION OR NURSING QUESTIONS. Diet: heart healthy Activity: Fall precautions, no lifting more than 5 pounds Diet: AHA Activity: Fall precautions Followup: Gaston Jara MD [ACTIVE - CAN ADMIT] - NONE,NONE [Primary Care Provider] - Time spent managing pt's care (in minutes): 35
== END 2021-02-21 14:17 | disposition home or self-care (01) | DRG 342 ==
LOC: ER 19:23 → ERHOLD 02-20 00:13 → 2ND 02-20 01:33 → OBSVTOIN 02-20 07:58
PROVIDERS: ADMIT Hospitalist; ATTEND Hospitalist
PROC: 0DTJ4ZZ Resection of Appendix, Percutaneous Endoscopic Approach (ICD-10-PCS; principal; 2021-02-20 15:45)
DX: K35.80 Unspecified acute appendicitis (principal); Z68.41 Body mass index [BMI] 40.0-44.9, adult; E66.01 Morbid (severe) obesity due to excess calories; I10 Essential (primary) hypertension; Z20.822 Contact with and (suspected) exposure to COVID-19
CPT/HCPCS: 36415; 74176; 74177; 80048; 80053; 80076; 80307; 81001; 81003; 83690; 84145; 85025; 88304; 93005; 96361; 96365; 96375; 99285; C9113; G0378; J0330; J1100; J2250; J2270; J2405; J2543; J2704; J2710; J3010; J7030; J7120; Q9967; U0003

== ENCOUNTER 2024-05-19 14:36 | Emergency (ER) | payer OTHER, SELFPAY ==
[2024-05-19 14:57] LABS: Absolute Lymphocytes (CBC) 1.6 K/uL (0.7-4.9); Absolute Monocytes 0.4 K/uL (0.1-1.3); Absolute Neutrophil 1.9 K/uL (1.8-8.0); Basophils % 0.7 % (0-1.3); Eosinophils % 0.8 % (0-4.4); Hematocrit 50.3 % (39.6-49.0); Hemoglobin 16.7 g/dL (13.6-17.9); Lymphocytes % 40.8 % (15.3-44.8); MCH 28.3 pg (27.0-35.0); MCHC 33.2 g/dL (32.0-36.0); MCV 85.3 fL (80-100); MPV 6.6 fL (7.6-11.3); Monocytes % 10.4 % (3.3-12.3); Neutrophils % 47.3 % (41.7-73.7); Nucleated Red Blood Cells % 0.1 % (0-0); Platelets 227 thou/uL (152-406); RBC Red Blood Cell Count 5.89 M/uL (4.33-5.43); Red Cell Distribution Width 14.9 % (12.1-15.2)
[2024-05-19 15:23] LABS: ALT/SGPT 46 U/L (16-61); AST/SGOT 28 U/L (15-37); Albumin 3.6 g/dL (3.4-5.0); Albumin/Globulin Ratio 0.9 (1.1-1.8); Alkaline Phosphatase 53 U/L (45-117); Anion Gap 6.6 mEq/L (5.0-15.0); BUN Blood Urea Nitrogen 11 mg/dL (7-18); Bicarbonate 28 mEq/L (21-32); Bilirubin Total 0.5 mg/dL (0.2-1.0); Globulin 4.2 g/dL (2.3-3.5); Glomerular Filtration Rate 78 ml/min (=/>90); Glucose Level 137 mg/dL (74-106); Lipase 25 U/L (13-75); NT PRO-BNP 43 pg/mL (<125); Potassium 3.6 mEq/L (3.5-5.1); Protein, Total 7.8 g/dL (6.4-8.2); Sodium Level 137 mEq/L (136-145); Troponin High Sensitivity 4.5 pg/mL (<58.9)
[2024-05-19 15:25] LABS: Bilirubin Direct < 0.2 mg/dL (0-0.2); Bilirubin Indirect, Calculated 0.3 mg/dL (0.2-0.8)
--- NOTE | 2024-05-19 16:23 | RAD REPORT ---
EXAMINATION: ONE VIEW CHEST XR CLINICAL INDICATION: Male, 43 years old. [facility] MA[facility] CHEST PAIN Bed Name: 6 TECHNIQUE: Frontal chest projection is submitted. Examination is limited by patient positioning and t echnique. COMPARISON: No prior exam. FINDINGS: The lungs are well inflated and clear. No pneumothorax or sizable effusion. The heart is normal in s ize. IMPRESSION: No acute intrathoracic abnormalities.
--- NOTE | 2024-05-19 16:49 | RAD REPORT ---
EXAM: Angio Aorta For Dissection HISTORY: [facility] MAIN n/a chest/abd pain Bed Name: 6 COMPARISON: 02/20/2021 TECHNIQUE: Multiple contiguous axial images were obtained a CTA of the chest and abdomen with contras t per aortic dissection protocol. Sagittal and coronal 3-D MIP reformats were performed. One or more of the following dose reduction techniques were used: Automated exposure control, adjustment of the mA and kV according to patient size, and iterative reconstruction. Unless otherwise specified, incidental findings do not require dedicated imaging follow-up. FINDINGS: PULMONARY ARTERIES: Normal in caliber without filling defects to suggest pulmonary emboli. MEDIASTINUM: No hilar or mediastinal lymphadenopathy. LUNGS: No focal infiltrates or masses. PLEURAL SPACE: No pleural effusion or pneumothorax. LIVER: Unremarkable. KIDNEYS: Unremarkable. SPLEEN: Unremarkable. PANCREAS: Unremarkable. BOWEL: Unremarkable. Status post appendectomy. RETROPERITONEUM: No lymphadenopathy BONES: Degenerative changes in the spine. Prostate is mildly prominent size. ASCENDING THORACIC AORTA: Normal caliber without evidence of dissection or aneurysmal dilatation. DESCENDING THORACIC AORTA: Normal caliber without evidence of dissection or aneurysmal dilatation. ABDOMINAL AORTA: Normal caliber without evidence of dissection or aneurysmal dilatation. CELIAC TRUNK: Patent SMA: Patent JENIFFER: Patent RENAL ARTERIES: Bilateral single renal arteries without significant atherosclerotic disease IMPRESSION: No evidence of thoracic or abdominal aortic aneurysm or dissection.
--- NOTE | 2024-05-19 17:09 | ER ---
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 Coronavirus screen: At this time, the client does not indicate any symptoms associated with coronavirus-19. Ebola Screen: No symptoms or risks identified at this time. Initial Sepsis Screen: Does the patient meet any 2 criteria? No. Patient's initial sepsis screen is negative. Does the patient have a suspected source of infection? No. Patient's initial sepsis screen is negative. Risk Assessment: Do you want to hurt yourself or someone else? Patient reports no desire to harm self or others. Onset of symptoms was May 19, 2024. 14:48 Method Of Arrival: Ambulatory ap3 14:48 Acuity: AVINASH 2 ap3 Triage Assessment: 14:52 General: Appears in no apparent distress. Behavior is calm, cooperative, appropriate ap3 for age. Pain: Complains of pain in chest Pain currently is 6 out of 10 on a pain scale. Pain began 30 min ago. Neuro: Level of Consciousness is awake, alert, obeys commands, Oriented to person, place, time, situation, Appropriate for age Gait is steady, Speech is normal. Cardiovascular: Patient's skin is warm and dry. Respiratory: Airway is patent Respiratory effort is even, unlabored, Respiratory pattern is regular, symmetrical. Historical: - Allergies: 14:52 No Known Allergies; ap3 - Home Meds: 14:52 None [Active]; ap3 - PMHx: 14:52 Hypertensive disorder; ap3 - Immunization history:: Client reports having NOT received the Covid vaccine. - Infectious Disease History:: Denies. - Family history:: not pertinent. - Social history:: Smoking status: Patient denies any tobacco usage or history of. Patient uses street drugs, marijuana. - Hospitalizations: : No recent hospitalization is reported. Screenin:48 [facility] ED Fall Risk Assessment (Adult) History of falling in the last 3 months, kc6 including since admission No falls in past 3 months (0 pts) Confusion or Disorientation No (0 pts) Intoxicated or Sedated No (0 pts) Impaired Gait No (0 pts) Mobility Assist Device Used No (0 pt) Altered Elimination No (0 pt) Score/Fall Risk Level 0 - 2 = Low Risk Oriented to surroundings. Abuse screen: Denies threats or abuse. Denies injuries from another. Nutritional screening: No deficits noted. Tuberculosis screening: No symptoms or risk factors identified. Assessment: 14:50 General: Appears in no apparent distress. comfortable, obese, well groomed, well kc6 developed, Behavior is calm, cooperative, appropriate for age. Pain: Complains of pain in chest and abdomen Pain does not radiate. Pain currently is 6 out of 10 on a pain scale. Pain began 30 min ago. Is continuous. Neuro: Level of Consciousness is awake, alert, obeys commands, Oriented to person, place, time, situation, Appropriate for age. Cardiovascular: Reports chest pain, shortness of breath, Heart tones S1 S2 present Capillary refill < 3 seconds Rhythm is sinus rhythm. Respiratory: Airway is patent Trachea midline Respiratory effort is even, unlabored, Respiratory pattern is regular, symmetrical. GI: No signs and/or symptoms were reported involving the gastrointestinal system. : No signs and/or symptoms were reported regarding the genitourinary system. EENT: No signs and/or symptoms were reported regarding the EENT system. Derm: No signs and/or symptoms reported regarding the dermatologic system. Skin is intact, is healthy with good turgor, Skin is pink, warm \T\ dry. Musculoskeletal: No signs and/or symptoms reported regarding the musculoskeletal system. Circulation, motion, and sensation intact. Capillary refill < 3 seconds, Range of motion: intact in all extremities. 16:20 Reassessment: Patient appears in no apparent distress at this time. No changes from kc6 previously documented assessment. Patient and/or family updated on plan of care and expected duration. Pain level reassessed. Patient is alert, oriented x 3, equal unlabored respirations, skin warm/dry/pink. 17:26 Reassessment: Patient appears in no apparent distress at this time. No changes from kc6 previously documented assessment. Patient and/or family updated on plan of care and expected duration. Pain level reassessed. Patient is alert, oriented x 3, equal unlabored respirations, skin warm/dry/pink. Patient states feeling better. Patient states symptoms have improved. Vital Signs: 14:48 BP 168 / 93; Pulse 76; Resp 17; Temp 98.2(O); Pulse Ox 99% on R/A; Weight 139 kg; Pain ap3 6/10; 15:36 BP 172 / 99; Pulse 89; Resp 16 S; Pulse Ox 95% on R/A; kc6 16:20 BP 156 / 92; Pulse 68; Resp 16 S; Pulse Ox 95% on R/A; kc6 17:26 BP 151 / 96; Pulse 68; Resp 16 S; Pulse Ox 99% on R/A; kc6 14:48 Pain Scale: Adult ap3 ED Course: 14:38 Patient arrived in ED. mr 14:39 Remy Chopra MD is Attending Physician. rn 14:42 Suzanne Polanco RN is Primary Nurse. kc6 14:47 EKG done, by ED staff, reviewed by Remy Chopra MD. Patient maintains SpO2 saturation kc6 greater than 95% on room air. 14:48 Patient has correct armband on for positive identification. Bed in low position. Call kc6 light in reach. Side rails up X 1. teletypesetter monitor on. Pulse ox on. NIBP on. Door closed. Noise minimized. Lights dimmed. Warm blanket given. Pillow given. 14:52 Triage completed. ap3 14:53 Initial lab(s) drawn, by va, sent to lab. Inserted saline lock: 20 gauge in right me1 antecubital area, using aseptic technique. 14:53 Arm band placed on right wrist. ap3 15:19 XRAY Chest (1 view) In Process Unspecified. EDMS 15:53 CT Aorta for Dissection In Process Unspecified. EDMS 17:26 No provider procedures requiring assistance completed. IV discontinued, intact, kc6 bleeding controlled, No redness/swelling at site. Pressure dressing applied. 17:26 Provided Education on: side effects of Lisinopril. kc6 Administered Medications: No medications were administered Medication: 17:27 VIS not applicable for this client. kc6 Outcome: 17:08 Discharge ordered by . rn 17:26 Discharged to home ambulatory, with family, kc6 17:26 Condition: good 17:26 Discharge instructions given to patient, Instructed on discharge instructions, follow up and referral plans. medication usage, Demonstrated understanding of instructions, follow-up care, medications, Prescriptions given X 1, 17:27 Patient left the ED. kc6 Signatures: Dispatcher [employer] EDMS Ruth Younger, Reg Reg mr Remy Chopra MD MD rn Prokisch, Amanda, RN RN ap3 Suzanne Polanco RN RN kc6 Eulalia Tatum RN RN me1
--- NOTE | 2024-05-19 17:09 | EDPHYS ---
Physician Documentation [facility] Name: Slick Jc Age: 43 yrs Sex: Male : 1980 Arrival Date: 05/19/2024 Time: 14:36 Bed 6 Private MD: ED Physician Remy Chopra HPI: 05/19 14:50 This 43 yrs old Black Male presents to ER via Unassigned with complaints of Chest Pain. rn 14:50 The patient or guardian reports chest pain that is located primarily in the substernal rn area. Onset: just prior to arrival. The pain does not radiate. Associated signs and symptoms: Pertinent positives: abdominal pain, shortness of breath, Pertinent negatives: cough, diaphoresis, palpitations, syncope, vomiting. The chest pain is described as a heaviness. Duration: The patient or guardian reports a single episode, that is still ongoing. Modifying factors: The symptoms are alleviated by nothing. the symptoms are aggravated by nothing. Severity of pain: At its worst the pain was moderate in the emergency department the pain has improved. The patient has not experienced similar symptoms in the past. Patient reports feeling fine when he woke up today, went about his day, just prior to arrival was driving and started having chest heaviness associated with shortness of breath and tingling of his body all over. No syncope. No recent bad news or feelings of anxiety. Has not seen a physician for over 11 years as has been incarcerated. Is supposed to be on blood pressure medication but has not. No fever or chills. No cough. No trauma. Denies withdrawal from drugs or alcohol. Also reports abdominal pain with nausea that began with symptoms.. Historical: - Allergies: 14:52 No Known Allergies; ap3 - Home Meds: 14:52 None [Active]; ap3 - PMHx: 14:52 Hypertensive disorder; ap3 - Immunization history:: Client reports having NOT received the Covid vaccine. - Infectious Disease History:: Denies. - Family history:: not pertinent. - Social history:: Smoking status: Patient denies any tobacco usage or history of. Patient uses street drugs, marijuana. - Hospitalizations: : No recent hospitalization is reported. ROS: 14:50 Constitutional: Negative for fever, chills, and weight loss, Eyes: Negative for injury, rn pain, redness, and discharge, Neck: Negative for injury, pain, and swelling, Cardiovascular: Negative for palpitations, and edema, Respiratory: Negative for cough, wheezing, and pleuritic chest pain, Abdomen/GI: Negative for nausea, vomiting, diarrhea, and constipation, MS/Extremity: Negative for injury and deformity, Skin: Negative for injury, rash, and discoloration, Neuro: Negative for headache, weakness, and seizure, Exam: 14:50 Constitutional: This is a well developed, well nourished patient who is awake, alert, rn and in no acute distress. Head/Face: Normocephalic, atraumatic. Cardiovascular: Regular rate and rhythm. No pulse deficits. Respiratory: No increased work of breathing, no retractions or nasal flaring. Abdomen/GI: Soft, non-tender MS/ Extremity: Pulses equal, no cyanosis. Neurovascular intact. Full, normal range of motion. Equal circumference. Neuro: Awake and alert, GCS 15 15:23 ECG was reviewed by the Attending Physician. rn Vital Signs: 14:48 BP 168 / 93; Pulse 76; Resp 17; Temp 98.2(O); Pulse Ox 99% on R/A; Weight 139 kg; Pain ap3 6/10; 15:36 BP 172 / 99; Pulse 89; Resp 16 S; Pulse Ox 95% on R/A; kc6 16:20 BP 156 / 92; Pulse 68; Resp 16 S; Pulse Ox 95% on R/A; kc6 17:26 BP 151 / 96; Pulse 68; Resp 16 S; Pulse Ox 99% on R/A; kc6 14:48 Pain Scale: Adult ap3 MDM: 14:39 Patient medically screened. rn 17:06 Differential diagnosis: acute myocardial infarction, acute pericarditis, anxiety, rn coronary artery disease esophagitis, gastritis, gastroesophageal reflux disease (GERD), pleurisy, pneumothorax, thoracic aortic disection. HEART Score: History: ECG: Normal (0), Age: < or = 45 years (0), Risk Factors: No Risk Factors Known (0), Troponin: < or = 1 x Normal Limit (0), Total Score = 0. Data reviewed: vital signs, nurses notes, lab test result(s), EKG, radiologic studies, CT scan, and as a result, I will discharge patient. Care significantly affected by the following chronic conditions: Hypertension. Counseling: I had a detailed discussion with the patient and/or guardian regarding the historical points, exam findings, and any diagnostic results supporting the discharge/admit diagnosis, lab results, radiology results, the need for outpatient follow up, to return to the emergency department if symptoms worsen or persist or if there are any questions or concerns that arise at home. Response to treatment: the patient's symptoms have resolved after treatment, the patient's condition has returned to base line, and as a result, I will discharge patient. Special discussion: I discussed with the patient/guardian in detail that at this point there is no indication for admission to the hospital. It is understood, however, that if the symptoms persist or worsen the patient needs to return immediately for re-evaluation. ED course: Patient reports completely back to baseline. Spouse or family member reports yesterday was his brother's birthday, who and this was the anniversary. Patient ultimately thinks that he had a panic attack or stress reaction which is a possibility given negative workup. CT angio aorta negative for acute problem as well. Will refill his lisinopril 10 mg and urged to follow-up with PCP. Return precautions given and understood.. 05/19 14:47 Order name: Basic Metabolic Panel; Complete Time: 15:05/19 14:47 Order name: CBC with Diff; Complete Time: 15:05/19 14:47 Order name: LFT's; Complete Time: 15:05/19 14:47 Order name: NT PRO-BNP; Complete Time: 15:05/19 14:47 Order name: Troponin HS; Complete Time: 15:05/19 14:48 Order name: Lipase; Complete Time: 15:05/19 14:47 Order name: XRAY Chest (1 view); Complete Time: 17:05/19 14:47 Order name: CT Aorta for Dissection; Complete Time: 17:05/19 14:47 Order name: EKG; Complete Time: 14:48 05/19 14:47 Order name: Cardiac monitoring; Complete Time: 14:48 05/19 14:47 Order name: EKG - Nurse/Tech; Complete Time: 14:48 05/19 14:47 Order name: IV Saline Lock; Complete Time: 14:05/19 14:47 Order name: Labs collected and sent; Complete Time: 14:51 rn 05/19 14:47 Order name: O2 Per Protocol; Complete Time: 14:48 rn 05/19 14:47 Order name: O2 Sat Monitoring; Complete Time: 14:48 rn EC:23 Rate is 74 beats/min. Rhythm is regular. QRS [place] is Normal. HI interval is normal. QRS rn interval is normal. QT interval is normal. No Q waves. T waves are Normal. No ST changes noted. Clinical impression: NSR w/ Non-specific ST/T Changes. Interpreted by me. Reviewed by me. Administered Medications: No medications were administered Disposition Summary: 05/19/24 17:08 Discharge Ordered Notes: Location: Home rn Problem: new rn Symptoms: are resolved rn Condition: Stable rn Diagnosis - Chest pain, unspecified rn - Acute stress reaction rn Followup: rn - With: Private Physician - When: As needed - Reason: Recheck today's complaints, Re-evaluation by your physician Discharge Instructions: - Discharge Summary Sheet rn - Nonspecific Chest Pain, Adult rn Forms: - Medication Reconciliation Form rn - Antibiotic brick kiln burner - Prescription Opioid Use rn - Patient Portal Instructions rn - Leadership Thank You Letter rn Prescriptions: - Lisinopril 10 mg Oral tablet - take 1 tablet ORAL route once daily; 60 tablet; Refills: 0, Product Selection rn Permitted Signatures: Dispatcher [employer] Remy Hernandez MD MD rn Prokisch, Amanda, RN RN ap3 Corrections: (The following items were deleted from the chart) 14:52 14:50 Constitutional: Negative for fever, chills, and weight loss, Eyes: Negative for rn injury, pain, redness, and discharge, Neck: Negative for injury, pain, and swelling, Cardiovascular: Negative for palpitations, and edema, Respiratory: Negative for cough, wheezing, and pleuritic chest pain, Abdomen/GI: Negative for nausea, vomiting, diarrhea, and constipation, MS/Extremity: Negative for injury and deformity, Skin: Negative for injury, rash, and discoloration, Neuro: Negative for headache, weakness, numbness, tingling, and seizure, rn
[2024-05-19 18:09] VITALS: TEMP 98.2
[2024-05-19 18:14] VITALS: BP 151/96; O2SAT 99
--- NOTE | 2024-05-20 13:49 | EKG ---
Test Date: 2024-05-19 Test Time: 14:45:55 Maintenance Job Titles: RAKESH MEASUREMENT RESULTS: Intervals: Rate: 74 NJ: 184 QRSD: 118 QT: 368 QTc: 408 [place]: P: 69 NJ: 184 QRS: 51 T: 47 INTERPRETIVE STATEMENTS: Sinus rhythm with marked sinus arrhythmia Otherwise normal ECG Compared to ECG 02/19/2021 20:56:47 Intraventricular conduction delay no longer present Electronically Signed On 05-20-24 13:08:30 CDT by Bhavik Kumar
== END 2024-05-19 17:27 | disposition home or self-care (01) ==
LOC: ER 14:36
DX: F43.0 Acute stress reaction (principal)
CPT/HCPCS: 36415; 71045; 71275; 74175; 80048; 80076; 83690; 83880; 84484; 85025; 93005; 99284; Q9966

== ENCOUNTER 2025-06-23 18:32 | Emergency (ER) | payer OTHER ==
--- NOTE | 2025-06-23 18:48 | ER ---
Nurse's Notes [facility] Name: Slick Jc Age: 44 yrs Sex: Male : 1980 Arrival Date: 06/23/2025 Time: 18:32 Bed IW2 Private MD: Diagnosis: Sciatica, left side Presentation: 06/23 18:46 Chief complaint: Patient states: 5 DAYS SCIATIC PATTERN PAIN. Coronavirus screen: At bp this time, the client does not indicate any symptoms associated with coronavirus-19. Ebola Screen: No symptoms or risks identified at this time. Initial Sepsis Screen: Does the patient meet any 2 criteria? No. Patient's initial sepsis screen is negative. Does the patient have a suspected source of infection? No. Patient's initial sepsis screen is negative. Risk Assessment: Do you want to hurt yourself or someone else? Patient reports no desire to harm self or others. 18:46 Method Of Arrival: Wheelchair bp 18:46 Acuity: AVINASH 5 bp Historical: - Allergies: 18:47 No Known Allergies; bp - PMHx: 18:47 Hypertensive disorder; bp - Immunization history:: Adult Immunizations up to date. - Infectious Disease History:: Denies. - Social history:: Smoking status: Patient denies any tobacco usage or history of. Screenin:32 [facility] ED Fall Risk Assessment (Adult) History of falling in the last 3 months, bp including since admission No falls in past 3 months (0 pts) Confusion or Disorientation No (0 pts) Intoxicated or Sedated No (0 pts) Impaired Gait No (0 pts) Mobility Assist Device Used No (0 pt) Altered Elimination No (0 pt) Score/Fall Risk Level 0 - 2 = Low Risk Oriented to surroundings, Maintained a safe environment, Educated pt \T\ family on fall prevention, incl call for assistance when getting out of bed, Assessed \T\ reinforced patient's understanding of fall precautions. Abuse screen: Denies threats or abuse. Nutritional screening: No deficits noted. Tuberculosis screening: No symptoms or risk factors identified. Assessment: 19:32 Reassessment: ASSUMED CARE OF PT. PT SITTING IN WC. LOWER BACK PAIN NOTED. General: bp Appears in no apparent distress. comfortable, Behavior is calm, cooperative, appropriate for age. Pain: Complains of pain in back. Neuro: No deficits noted. Musculoskeletal: Reports pain in back. Vital Signs: 18:46 BP 146 / 87; Pulse 70; Resp 16; Temp 97.5; Pulse Ox 100% ; bp 19:32 BP 142 / 95; Pulse 69; Resp 20; Temp 97.3; Pulse Ox 100% ; bp ED Course: 18:34 Patient arrived in ED. im 18:38 [facility] May[facility] 18:38 Doc Malcolm DO is Attending Physician. dr5 18:47 Triage completed. bp 18:47 Arm band placed on. bp 19:32 Patient has correct armband on for positive identification. Provided Education on: MEDS.bp 19:32 No provider procedures requiring assistance completed. Patient did not have IV access bp during this emergency room visit. Administered Medications: 19:30 Drug: Dexamethasone IM 10 mg IM once Route: IM; Site: left deltoid; bp 19:40 Follow up: Response: No adverse reaction bp Medication: 19:32 VIS not applicable for this client. bp Outcome: 18:47 Discharge ordered by MD. dr5 19:32 Discharged to home via wheelchair, with family, bp 19:32 Condition: good 19:32 Discharge instructions given to patient, Instructed on discharge instructions, no driving heavy equipment, medication usage, Demonstrated understanding of instructions, medications, Prescriptions given X 3, 19:41 Patient left the ED. bp Signatures: Rosalio Calzada, RN RN Freya Francois im Elijah Mayberry FNP-C BAND ATTACHER-[id number]
--- NOTE | 2025-06-23 18:48 | EDPHYS ---
Physician Documentation [facility] Name: Slick Jc Age: 44 yrs Sex: Male : 1980 Arrival Date: 06/23/2025 Time: 18:32 Bed IW2 Private MD: ED Physician Doc Malcolm HPI: 06/23 19:48 This 44 yrs old Black Male presents to ER via Wheelchair with complaints of Low Back dr5 Pain. 19:48 The symptoms are located in the low back. Onset: The symptoms/episode began/occurred 5 dr5 day(s) ago. Patient is a 44-year-old male with history of hypertension coming in with left low back pain radiating down left leg consistent with his previous sciatic nerve pain. Patient reports he has had ibuprofen with mild relief. Patient denies perirectal numbness, numbness or tingling to bilateral lower legs, or bowel or bladder incontinence.. Historical: - Allergies: 18:47 No Known Allergies; bp - PMHx: 18:47 Hypertensive disorder; bp - Immunization history:: Adult Immunizations up to date. - Infectious Disease History:: Denies. - Social history:: Smoking status: Patient denies any tobacco usage or history of. ROS: 19:48 Constitutional: as per hpi dr5 Exam: 19:48 Constitutional: This is a well developed, well nourished patient who is awake, alert, dr5 and in no acute distress. Head/Face: Normocephalic, atraumatic. Eyes: Pupils equal round and reactive to light, extra-ocular motions intact. Lids and lashes normal. Conjunctiva and sclera are non-icteric and not injected. Cornea within normal limits. Periorbital areas with no swelling, redness, or edema. Neck: Trachea midline, no thyromegaly or masses palpated, and no cervical lymphadenopathy. Supple, full range of motion without nuchal rigidity, or vertebral point tenderness. No Meningismus. Chest/axilla: Normal chest wall appearance and motion. Nontender with no deformity. No lesions are appreciated. Cardiovascular: Regular rate and rhythm with a normal S1 and S2. Normal PMI, no JVD. No pulse deficits. Respiratory: Lungs have equal breath sounds bilaterally, clear to auscultation. No rales, rhonchi or wheezes noted. No increased work of breathing, no retractions or nasal flaring. Back: No spinal tenderness. No costovertebral tenderness. Full range of motion. Positive straight leg of right leg Skin: Warm, dry with normal turgor. Normal color with no rashes, no lesions, and no evidence of cellulitis. MS/ Extremity: Pulses equal, no cyanosis. Neurovascular intact. Full, normal range of motion. Neuro: Awake and alert, GCS 15, oriented to person, place, time, and situation. Cranial nerves II-XII grossly intact. Motor strength 5/5 in all extremities. Sensory grossly intact. Cerebellar exam normal. Normal gait. Vital Signs: 18:46 BP 146 / 87; Pulse 70; Resp 16; Temp 97.5; Pulse Ox 100% ; bp 19:32 BP 142 / 95; Pulse 69; Resp 20; Temp 97.3; Pulse Ox 100% ; bp MDM: 18:38 Medical Screening Exam initiated dr5 19:48 Differential diagnosis: arthritis, strain, fracture, sciatica. Data reviewed: vital dr5 signs, nurses notes. Consideration of Admission/Observation Escalation of care including admission/observation considered. Escalation considered patient found to have back pain red flags such as bowel or bladder incontinence. I considered the following discharge prescriptions or medication management in the emergency department I discussed and recommended Over The Counter medications, Medications were administered in the Emergency Department. See MAR. Test considered but Not performed: X-ray: X-ray considered but patient did not have trauma or falls. Historians other than the Patient: Spouse/Significant Other: Significant other. Care significantly affected by the following Social Determinants of Health: Poor access to healthcare and/or lack of insurance, Poor access to transportation, Problems related to employment. Counseling: I had a detailed discussion with the patient and/or guardian regarding the historical points, exam findings, and any diagnostic results supporting the discharge/admit diagnosis, the presence of at least one elevated blood pressure reading (>120/80) during this emergency department visit, the need for outpatient follow up, for definitive care, a family practitioner, a orthopedic surgeon, to return to the emergency department if symptoms worsen or persist or if there are any questions or concerns that arise at home. Medication response: Dexamethasone. Special discussion: I discussed with the patient/guardian in detail that at this point there is no indication for admission to the hospital. It is understood, however, that if the symptoms persist or worsen the patient needs to return immediately for re-evaluation. Based on the history and exam findings, there is no indication for further emergent testing or inpatient evaluation. I discussed with the patient/guardian the need to see the primary care provider for further evaluation of the symptoms. ED course: Will have patient follow primary care doctor. Diagnosis likely sciatic nerve pain and will give pain medication as well as anti-inflammatories and muscle laxer's to help with pain. Recommended patient increase hydration and do back pain exercises. All questions answered. Strict ER precautions given. Administered Medications: 19:30 Drug: Dexamethasone IM 10 mg IM once Route: IM; Site: left deltoid; bp 19:40 Follow up: Response: No adverse reaction bp Disposition Summary: 06/23/25 18:47 Discharge Ordered Notes: Location: Home dr5 Condition: Stable dr5 Diagnosis - Sciatica, left side dr5 Followup: dr5 - With: Emergency Department - When: As needed - Reason: Worsening of condition Followup: dr5 - With: Private Physician - When: 1 - 2 days - Reason: Recheck today's complaints, Continuance of care, Re-evaluation by your physician Discharge Instructions: - Discharge Summary Sheet dr5 - Sciatica dr5 - Back Exercises, [id number] dr5 Forms: - Medication Reconciliation Form dr5 - Prescription Opioid Use dr5 - Patient Portal Instructions dr5 - Leadership Thank You Letter dr5 Prescriptions: - Cyclobenzaprine 10 mg Oral Tablet - take 1 tablet ORAL route every 8 hours As needed; 30 tablet; Refills: 0, dr5 Product Selection Permitted - Tramadol 50 mg Oral Tablet - take 1 tablet ORAL route every 8 hours as needed; 12 tablet; Refills: 0, dr5 Product Selection Permitted - Medrol (Slim) 4 mg Oral Tablets, Dose Pack - take 1 tablet ORAL route as directed - follow package instructions; 1 packet; dr5 Refills: 0, Product Selection Permitted Signatures: Rosalio Calzada, RN RN bp Elijah Mayberry, ENVIRONMENTAL EDUCATOR-C ENVIRONMENTAL EDUCATOR-Cdr5
[2025-06-23 19:56] VITALS: O2SAT 100
[2025-06-23 20:02] VITALS: BP 142/95; TEMP 97.3
== END 2025-06-23 19:41 | disposition home or self-care (01) ==
LOC: ER 18:32
DX: M54.32 Sciatica, left side (principal)
CPT/HCPCS: 96372; 99284; J1100